=== PATIENT | female | born 1995 | race Caucasian/White ===

== ENCOUNTER → 2017-04-24 | Emergency (ER) | payer OTHER ==
[~2017-04-24] VITALS: Ht 154.9 cm; Wt 48.1 kg
== END | disposition home or self-care (01) ==
LOC: ER 16:46 → CPU-OBS 16:56
DX: R07.89 Other chest pain (principal)
CPT/HCPCS: G0379; 93005

== ENCOUNTER 2020-03-28 14:31 | Outpatient (CLI) | payer OTHER | END 2020-03-28 15:00 | disposition home or self-care (01) | LOC: OFIC 805 14:31 | PROVIDERS: ATTEND Otolaryngology Otology & Neurotology | DX: H66.42 Suppurative otitis media, unspecified, left ear (principal); H92.02 Otalgia, left ear ==